=== PATIENT | female | born 1980 | race Caucasian/White ===

== ENCOUNTER 2017-02-03 12:09 | Emergency (ER) | payer OTHER ==
[~2017-02-03] VITALS: Ht 162.6 cm; Wt 8601.0 kg
[~2017-02-03 12:09] MED LIST: ALBUTEROL SULF8.5 GM IH; AURALGAN14.8 ML BOTH EARS; CIPRO HC OTIC S10 ML BOTH EARS; FLONASE16 G1 BOTH NARES; HYDROCODON-ACE1 EAC7 PO; LIDOCAINE20 MG/1 M5 PO; LORTAB 5-325 M1 EACH PO; MOTRIN600 MG PO; MUCUS RELIEF600 M1 PO; NAPROSYN250 MG PO; NAPROSYN500 MG PO; NOHOMEMEDS; PEN-VEE K,VEET500 MG PO; PERIDEX1 ML MM; ROBITUSSIN AC,T10 ML PO; TYLENOL REGULA325 MG PO
[2017-02-03 12:28] LABS: HEMATOCRIT 42.1 % (36.0-46.0); MCH 31.1 PG (29.0-34.0); MCV 94.2 FL (83-99); MEAN PLAT.VOLUME 10.4 uM^3 (9.5-12.4); PLATELET COUNT 434 K/uL (156-360); RBC DIS.WIDTH-CV 12.6 % (11.8-14.6); RBC DIS.WIDTH-SD 43.6 % (39-53); RED BLOOD COUNT 4.47 M/uL (3.80-5.20); WHITE BLOOD COUNT 19.8 K/uL (4.1-10.2)
[2017-02-03 12:41] LABS: CHLORIDE 104 mEq/L (99-109); POTASSIUM 3.3 mEq/L (3.7-5.4); SODIUM 139 mEq/L (136-147)
[2017-02-03 12:44] LABS: GLUCOSE 244 mg/dL (70-99)
[2017-02-03 12:45] LABS: ANION GAP 15 MEQ/L (2-14); TOTAL BILIRUBIN 0.5 mg/dL (0.0-1.0)
[2017-02-03 12:46] LABS: SERUM ETHYL ALCOHOL < 10 mg/dL
[2017-02-03 12:47] LABS: ALKALINE PHOSPHATASE 71 IU/L (3-129); GFR ESTIMATE (CALCULATED) > 59 mL/min/
[2017-02-03 12:48] LABS: UREA NITROGEN (BUN) 10 mg/dL (9-23)
[2017-02-03 12:49] LABS: QUANTITATIVE HCG < 4.0 MIU/ML
[2017-02-03 15:03] LABS: ADD MIUA? YES; BILIRUBIN NEGATIVE; BLOOD NEGATIVE; COLOR YELLOW ((YELLOW)); GLUCOSE (STRIP) NEGATIVE; KETONES NEGATIVE; LEUKOCYTES TRACE; NITRITE NEGATIVE; PROTEIN (STRIP) 30; SPECIFIC GRAVITY 1.011 (1.000-1.030); UROBILINOGEN 0.2 MG/DL (0.2-1.0)
[2017-02-03 15:13] LABS: ADD MEDTOX COMMENT Y; AMPHETAMINE NEGATIVE (500 ng/mL); BARBITURATES NEGATIVE (200 ng/mL); BENZODIAZEPINES NEGATIVE (150 ng/mL); COCAINE PRESUMPTIVE POSITIVE (150 ng/mL); INTERNAL CONTROLS VALID? YES; METHADONE NEGATIVE (200 ng/mL); METHAMPHETAMINE NEGATIVE (500 ng/mL); OPIATES (MORPHINE) NEGATIVE (100 ng/mL); OXYCODONE NEGATIVE (100 ng/mL); PHENCYCLIDINE NEGATIVE (25 ng/mL); PROPOXYPHENE NEGATIVE (300 ng/mL); THC CANNABINOIDS NEGATIVE (50 ng/mL); TRICYCLIC ANTIDEPRESSANTS NEGATIVE (300 ng/mL)
[2017-02-03 15:15] LABS: BACTERIA RARE /HPF; EPITHELIAL CELLS RARE /HPF; MUCUS TRACE /LPF; RED BLOOD CELLS 0-5 /HPF (0-5); WHITE BLOOD CELLS 0-5 /HPF (0-5)
[2017-02-03 16:09] VITALS: BP 135/81
== END 2017-02-03 16:30 | disposition home or self-care (01) ==
LOC: EME 12:09
PROVIDERS: Emergency Medicine
DX: F19.10 Other psychoactive substance abuse, uncomplicated (principal); F14.10 Cocaine abuse, uncomplicated; R56.9 Unspecified convulsions; Z87.891 Personal history of nicotine dependence
CPT/HCPCS: 70450; 80053; 81003; 84702; 84999; 85027; 93005; 99281; 99285; G0480

== ENCOUNTER 2017-07-22 21:07 | Emergency (ER) | payer OTHER ==
[~2017-07-22] VITALS: Ht 162.6 cm; Wt 85.0 kg
[2017-07-22] MEDS ORDERED: PERCOCET 5/31 TABLET PO (23:28)
[2017-07-22] MEDS ORDERED: FLEXERIL10 MG PO (23:28)
[2017-07-22 23:37] VITALS: BP 143/66
== END 2017-07-22 23:40 | disposition home or self-care (01) ==
LOC: EME 21:07
DX: S39.012A Strain of muscle, fascia and tendon of lower back, initial encounter (principal); S23.3XXA Sprain of ligaments of thoracic spine, initial encounter; M54.2 Cervicalgia; V49.40XA Driver injured in collision with unspecified motor vehicles in traffic accident, initial encounter; Y92.410 Unspecified street and highway as the place of occurrence of the external cause; Z87.891 Personal history of nicotine dependence
CPT/HCPCS: 99281; 99283